=== PATIENT | female | born 1975 | race Caucasian/White ===

== ENCOUNTER → 2019-10-07 | Outpatient (CLI) | payer BC ==
--- NOTE | 2019-10-07 13:08 | US ---
EXAMINATION TYPE: US venous doppler duplex LE LT DATE OF EXAM: 10/07/2019 12:54 PM COMPARISON: NONE CLINICAL HISTORY: M25.562 PAIN LT KNEE, I80.9 PHLEBITIS AND THROMBOPHLEBITIS. Patient c/o left knee p ain; prior SVT per patient after C section delivery. SIDE PERFORMED: Left TECHNIQUE: The lower extremity deep venous system is examined utilizing real time linear array sonog an with graded compression, doppler sonography and color-flow sonography. VESSELS IMAGED: Common Femoral Vein Deep Femoral Vein Greater Saphenous Vein * Femoral Vein Popliteal Vein Small Saphenous Vein * Proximal Calf Veins (* superficial vessels) Left Leg: Negative for DVT. No Greater Saphenous Vein thrombosis seen. IMPRESSION: No evidence of DVT.
== END | disposition home or self-care (01) ==
LOC: RADUSWWP 12:18
PROVIDERS: ATTEND Orthopaedic Surgery
DX: M25.562 Pain in left knee (principal); I80.3 Phlebitis and thrombophlebitis of lower extremities, unspecified

== ENCOUNTER → 2020-08-15 | Outpatient (CLI) | payer BC ==
--- NOTE | 2020-08-16 08:22 | XR ---
EXAMINATION TYPE: XR cervical spine w flex/ext 7 views, XR lumbar spine 3 views, XR shoulder complete 3 views LT DATE OF EXAM: 08/15/2020 COMPARISON: NONE HISTORY: 44-year-old female M4 7.16, lower back pain, [id number], history of C2 fracture and left shoulder pain radiating into the neck. FINDINGS: CERVICAL SPINE: This seems to be some degenerative change at the C1 dens articulation. No predental space widening or prevertebral soft tissue swelling. Mild endplate spondylosis C2-C3 and more moderate at C5-C6. Facet arthropathy mid to lower lumbar spine. Mild bony neural foraminal narrowing on the left at C5-C6. Al ignment is maintained. No dynamic subluxation on flexion or extension views. LUMBAR SPINE: 5 lumbar type vertebral bodies. Mild anterior wedging L1 vertebral body is age indeterminate. Mild de generative disc disease L3-L4 and scattered minimal endplate spondylosis throughout. Degenerative gra de 1 retrolisthesis L2-L3 and L3-L4. Facet arthropathy throughout. LEFT SHOULDER: There may be subtle osteolysis at the distal clavicle. The joint itself appears congruent. Subacromia l space is preserved. No tendinous or bursal calcifications. No acute fracture, subluxation, or dislo cation. IMPRESSION: 1. Cervical spine: Some degenerative change at the C1 dens articulation. Moderate spondylotic change C5-C6. Mild bony neuroforaminal narrowing on the left at this level. No malalignment or dynamic sublu xation. 2. Lumbar spine: Mild anterior wedging of L1 secondary to superior endplate injury, age indeterminate . Clinically correlate. Facet arthropathy with degenerative grade 1 retrolisthesis L2-L3 and L3-L4. S cattered mild degenerative disc disease greatest at L3-L4. 3. Left shoulder: There may be subtle early distal clavicle osteolysis which can be seen with aggress rolly weight training or on a posttraumatic basis. There are other differential considerations for this finding but considered these etiologies first. Otherwise, no acute osseous abnormality seen.
== END | disposition home or self-care (01) ==
LOC: RADXRMAIN 17:05
PROVIDERS: ATTEND Internal Medicine
DX: M47.812 Spondylosis without myelopathy or radiculopathy, cervical region (principal); M99.71 Connective tissue and disc stenosis of intervertebral foramina of cervical region; M48.56XA Collapsed vertebra, not elsewhere classified, lumbar region, initial encounter for fracture; M51.36 Other intervertebral disc degeneration, lumbar region; M47.816 Spondylosis without myelopathy or radiculopathy, lumbar region; M43.16 Spondylolisthesis, lumbar region
CPT/HCPCS: 72052; 72100